=== PATIENT | female | born 1995 | race Caucasian/White ===

== ENCOUNTER 2022-06-19 21:46 | Inpatient (IN) | payer OTHER ==
[~2022-06-19] VITALS: Ht 165.1 cm; Wt 130.6 kg
[2022-06-19] MEDS ORDERED: ADULT LOW DOSE81 M1 PO (21:56)
[2022-06-19] MEDS ORDERED: PRENATAL TABLE1 EAC1 PO (21:57)
[2022-06-19] MEDS ORDERED: FOLIC ACID0.8 M1 PO (21:57)
[2022-06-20] MEDS ORDERED: FLUCONAZOLE50 MG (02:43)
== END 2022-06-22 12:49 | disposition home or self-care (01) | DRG 807 ==
LOC: OBS/DEL 21:46 → LDR 06-20 02:18 → OB/GYN 06-20 18:50
PROVIDERS: ADMIT Obstetrics & Gynecology; ATTEND Obstetrics & Gynecology
PROC: 10E0XZZ Delivery of Products of Conception, External Approach (ICD-10-PCS; principal; 2022-06-20)
PROC: 0KQM0ZZ Repair Perineum Muscle, Open Approach (ICD-10-PCS; 2022-06-20)
PROC: 4A1HXCZ Monitoring of Products of Conception, Cardiac Rate, External Approach (ICD-10-PCS; 2022-06-20)
DX: O70.1 Second degree perineal laceration during delivery (principal); Z37.0 Single live birth; Z3A.38 38 weeks gestation of pregnancy; Z20.822 Contact with and (suspected) exposure to COVID-19